=== PATIENT | female | born 1965 | race Caucasian/White ===

== ENCOUNTER 2016-12-26 07:20 | Emergency (ER) | payer OTHER ==
[~2016-12-26] VITALS: Ht 170.2 cm; Wt 77.3 kg
[2016-12-26] MEDS ORDERED: AUGMENTIN875TAB PO (07:46)
[2016-12-26] MEDS ORDERED: LORTAB 5-325 MG1 TAB PO (07:46)
[2016-12-26 08:07] VITALS: BP 137/84
== END 2016-12-26 08:15 | disposition home or self-care (01) | DRG 605 ==
LOC: ED 07:20
DX: S61.250A Open bite of right index finger without damage to nail, initial encounter (principal); F17.210 Nicotine dependence, cigarettes, uncomplicated; W55.01XA Bitten by cat, initial encounter; Y92.009 Unspecified place in unspecified non-institutional (private) residence as the place of occurrence of the external cause

== ENCOUNTER 2022-11-10 19:46 | Emergency (ER) | payer SELFPAY ==
[~2022-11-10] VITALS: Ht 170.2 cm; Wt 77.0 kg
[~2022-11-10 19:46] MED LIST: AUGMENTIN875TAB PO; LORTAB 5-325 MG1 TAB PO
[2022-11-10 20:02] VITALS: BP 148/102
[2022-11-10 20:27] LABS: URINE BILIRUBIN - DIPSTICK NEGATIVE (NEGATIVE); URINE BLOOD DIPSTICK MODERATE (NEGATIVE); URINE COLOR YELLOW; URINE GLUCOSE - DIPSTICK NEGATIVE (NEGATIVE); URINE KETONE NEGATIVE (NEGATIVE); URINE PROTEIN - DIPSTICK TRACE mg/dL (NEG-TRACE); URINE SPECIFIC GRAVITY <=1.005
[2022-11-10 20:32] LABS: URINE LEUK ESTERASE MODERATE (NEGATIVE); URINE NITRITE - DIPSTICK POSITIVE (Negative)
[2022-11-10 20:41] LABS: URINE SQUAMOUS EPITHELIAL CELL FEW EPI/hpf (0-FEW)
[2022-11-10] MEDS ORDERED: BACTRIM DS1 TAB PO (20:43)
[2022-11-10] MEDS ORDERED: PYRIDIUM200 MG PO (20:43)
[2022-11-10 21:09] VITALS: BP 148/102
== END 2022-11-10 21:09 | disposition home or self-care (01) | DRG 690 ==
LOC: ED 19:46
PROVIDERS: Family Medicine
DX: N30.00 Acute cystitis without hematuria (principal); B96.20 Unspecified Escherichia coli [E. coli] as the cause of diseases classified elsewhere; F17.200 Nicotine dependence, unspecified, uncomplicated

== ENCOUNTER 2023-12-29 06:17 | Emergency (ER) | payer SELFPAY ==
[~2023-12-29] VITALS: Ht 170.2 cm; Wt 77.0 kg
[~2023-12-29 06:17] MED LIST changes: +BACTRIM DS1 TAB PO; +PYRIDIUM200 MG PO
[2023-12-29 06:18] VITALS: BP 144/49
[2023-12-29] MEDS ORDERED: DICLOFENAC SODIUM 75 MG/TAB PO ONE (06:40)
[2023-12-29] MEDS ORDERED: ACETAMINOPHEN 500 MG TAB PO ONE (06:40)
[2023-12-29] MEDS ORDERED: VOLTAREN - GENE75 MG PO (06:40)
[2023-12-30] MEDS ORDERED: TRAMADOL HCL50 MG PO (00:20)
[2023-12-30] MEDS ORDERED: STERAPRED DS10 MG PO (00:20)
== END 2023-12-29 06:54 | disposition home or self-care (01) | DRG 558 ==
LOC: ED 06:17
DX: M77.52 Other enthesopathy of left foot and ankle (principal); F17.210 Nicotine dependence, cigarettes, uncomplicated

== ENCOUNTER 2023-12-29 22:06 | Emergency (ER) | payer SELFPAY ==
[~2023-12-29] VITALS: Ht 170.2 cm; Wt 77.0 kg
[~2023-12-29 22:06] MED LIST changes: +VOLTAREN - GENE75 MG PO
[2023-12-29 22:27] VITALS: BP 148/82
[2023-12-29 22:30] VITALS: BP 140/95
[2023-12-29] MEDS ORDERED: Acetaminophen 300 MG/Codeine 30 MG/COMBO PO ONE (22:35)
[2023-12-29] MEDS ORDERED: DEXAMETHASONE SOD. PHOSPHATE 10 MG/ML VIAL IM ONE (22:35)
[2023-12-29] MEDS ORDERED: KETOROLAC TROMETHAMINE 30 MG/ML SDV IM ONE (22:40)
[2023-12-29 22:53] LABS: BASO% 0.3 % (0-3); EOS% 0.1 % (0-8); HEMATOCRIT 43.9 % (37.0-47.0); HEMOGLOBIN 14.7 g/dl (12.0-16.0); IMMATURE GRANULOCYTES 0.1 % (0.0-5.0); LYMPH% 32.5 % (15-41); MEAN CORPUSCULAR HGB 31.1 pG CALC (26.0-32.0); MEAN CORPUSCULAR HGB CONC 33.5 g/dL CAL (32.0-36.0); MONO% 7.3 % (2-13); NEUT# 4.3 thou/uL (2.00-7.15); NEUT% 59.7 % (42-76); RED BLOOD COUNT 4.72 mill/uL (4.20-5.60); RED CELL DISTRI WIDTH 12.1 % (11.5-15.5)
[2023-12-29 23:00] VITALS: BP 141/87
[2023-12-29 23:09] LABS: BILIRUBIN, TOTAL 0.4 mg/dL (0.02-1.3); CREATININE 0.7 mg/dL (0.5-1.0); TOTAL PROTEIN 7.1 g/dL (6.3-8.2)
[2023-12-30] MEDS ORDERED: TRAMADOL HCL50 MG PO (00:20)
[2023-12-30] MEDS ORDERED: STERAPRED DS10 MG PO (00:20)
[2023-12-30 00:24] VITALS: BP 141/87
== END 2023-12-30 00:50 | disposition home or self-care (01) | DRG 552 ==
LOC: ED 22:06
PROVIDERS: Family Medicine
DX: M51.16 Intervertebral disc disorders with radiculopathy, lumbar region (principal)